=== PATIENT | male | born 1970 | race Two or more races ===

== ENCOUNTER 2018-11-05 19:19 | Emergency (ER) | payer MEDICAID ==
--- NOTE | 2018-11-05 19:46 | ED Physician Chart ---
ED Chief Complaint/HPI - Patient Information Date Seen:: 11/05/18 Time Seen:: 19:41 Chief Complaint:: Headache History of Present Illness:: 48 yo male had sudden onset of headache yesterday evening. Pt felt nausea and vomited 4 times last night and 3 times today. The headache is located in parietal and frontal areas with dizziness and stiff neck. Pt denied any recent head trauma but did recall a fall on the posterior head and back 2 years ago. He did not go to ED or see a doctor. Pt had similar headache a year ago. Pt was not on aspirin or other blood thinner. Allergies:: Allergies Allergy/AdvReac Type Severity Reaction Status Date / Time No Known Allergies Allergy Verified 11/05/18 19:32 Vitals:: Vital Signs - 8 hr 11/05/18 19:20 Temp 98.6 F HR 97 RR 18 BP 123/80 O2 Sat % 96 ED Review of Systems - Review of Systems General/Constitutional: No fever, No chills Skin: No rash Head: Headache Eyes: No pain ENT: No earache Neck: Neck pain Cardio Vascular: No chest pain Pulmonary: No SOB GI: Nausea, Vomiting, Diarrhea Musculoskeletal: Other (bilateral knee pain) Psychiatric: No prior psych history Neurological: No focal symptoms, Headache ED Past Medical History - Past Medical History Past Medical History: HTN, DM, Dyslipidemia, Arthritis Social History: Non Smoker, No Alcohol, No Drug Use Surgical History: None Family Medical History - Family Member Mother Hx Family Hypertension: Yes Hx Family Diabetes: Yes ED Physical Exam - Physical Examination General/Constitutional: Awake, Alert Head: Atraumatic Eyes: PERRL, EOMI Skin: No skin lesions ENMT: External ears, nose nl, Nasal exam nl Other Neck comments:: Posterior neck tenderness, mild stiff neck Respiratory: Clear to Auscultation, No Wheeze/Rhonchi/Rales Cardio Vascular: RRR, No murmur, gallop, rubs, NL S1 S2 GI: No tenderness/rebounding/guarding Extremities: normal strength in all extremities Neuro/Psych: No focal deficits ED Labs/Radiology/EKG Results - Lab Results Results: Laboratory Last Values WBC 9.0 Th/cmm (4.8-10.8) 11/05/18 20:00 RBC 5.68 Mil/cmm (4.30-5.70) 11/05/18 20:00 Hgb 17.4 gm/dL (12-16) 11/05/18 20:00 Hct 51.4 % (41.0-60) 11/05/18 20:00 MCV 90.6 fl (80-99) 11/05/18 20:00 MCH 30.6 pg (26.0-30.0) H 11/05/18 20:00 MCHC Differential 33.7 pg (28.0-36.0) 11/05/18 20:00 RDW 12.2 % (11.5-20.0) 11/05/18 20:00 Plt Count 274 Th/cmm (150-400) 11/05/18 20:00 MPV 7.7 fl 11/05/18 20:00 Neutrophils % 70.1 % (40.0-80.0) 11/05/18 20:00 Lymphocytes % 22.1 % (20.0-50.0) 11/05/18 20:00 Monocytes % 5.3 % (2.0-10.0) 11/05/18 20:00 Eosinophils % 2.4 % (0.0-5.0) 11/05/18 20:00 Basophils % 0.1 % (0.0-2.0) 11/05/18 20:00 PT 9.6 SECONDS (9.5-11.5) 11/05/18 20:00 INR 0.92 (0.5-1.4) 11/05/18 20:00 PTT (Actin FS) 26.7 SECONDS (26.0-38.0) 11/05/18 20:00 Sodium 134 mEq/L (136-145) L 11/05/18 20:00 Potassium 3.5 mEq/L (3.5-5.1) 11/05/18 20:00 Chloride 102 mEq/L (98-107) 11/05/18 20:00 Carbon Dioxide 21.5 mEq/L (21.0-31.0) 11/05/18 20:00 Anion Gap 14.0 (7.0-16.0) 11/05/18 20:00 BUN 17 mg/dL (7-25) 11/05/18 20:00 Creatinine 0.8 mg/dL (0.7-1.3) 11/05/18 20:00 Est GFR ( Amer) > 60.0 ml/min (>90) 11/05/18 20:00 Est GFR (Non-Af Amer) > 60.0 ml/min 11/05/18 20:00 BUN/Creatinine Ratio 21.3 11/05/18 20:00 Glucose 296 mg/dL (70-105) H 11/05/18 20:00 Calcium 8.9 mg/dL (8.6-10.3) 11/05/18 20:00 Total Bilirubin 0.8 mg/dL (0.3-1.0) 11/05/18 20:00 AST 10 U/L (13-39) L 11/05/18 20:00 ALT 13 U/L (7-52) 11/05/18 20:00 Alkaline Phosphatase 80 U/L (34-104) 11/05/18 20:00 Total Protein 7.0 gm/dL (6.0-8.3) 11/05/18 20:00 Albumin 4.1 gm/dL (4.2-5.5) L 11/05/18 20:00 Globulin 2.9 gm/dL 11/05/18 20:00 Albumin/Globulin Ratio 1.4 (1.0-1.8) 11/05/18 20:00 Urine Source MIDSTREAM 11/05/18 19:55 Urine Color YELLOW 11/05/18 19:55 Urine Clarity HAZY (CLEAR) 11/05/18 19:55 Urine pH 6.0 (4.6 - 8.0) 11/05/18 19:55 Ur Specific Watkins 1.025 (1.005-1.030) 11/05/18 19:55 Urine Protein 100 mg/dL (NEGATIVE) H 11/05/18 19:55 Urine Glucose (UA) >=1000 mg/dL (NEGATIVE) H 11/05/18 19:55 Urine Ketones NEGATIVE mg/dL (NEGATIVE) 11/05/18 19:55 Urine Blood TRACE (NEGATIVE) 11/05/18 19:55 Urine Nitrate NEGATIVE (NEGATIVE) 11/05/18 19:55 Urine Bilirubin NEGATIVE (NEGATIVE) 11/05/18 19:55 Urine Urobilinogen 0.2 E.U./dL (0.2 - 1.0) 11/05/18 19:55 Ur Leukocyte Esterase NEGATIVE (NEGATIVE) 11/05/18 19:55 Urine RBC 5-10 /hpf (0-5) H 11/05/18 19:55 Urine WBC 2-5 /hpf (0-5) 11/05/18 19:55 Ur Epithelial Cells FEW /lpf (FEW) 11/05/18 19:55 Urine Bacteria 1+ /hpf (NONE SEEN) H 11/05/18 19:55 Urine Mucus FEW /lpf (FEW) 11/05/18 19:55 - Radiology Results Results: Non-contrast CT head: left posterior parietal lobe subarachnoid bleed. No shift. No edema. ED Assessment - Assessment General Assessment: Headache Left parietal lobe SAH Assessment/Comments:: CBC, CMP, PT/PTT, UA CT head wo contrast Tylenol 650 mg PO ED Septic Shock - . Is Septic Shock (SBP<90, OR Lactate>4 mmol\L) present?: No - <6hrs of presentation: Vital Signs: Vital Signs - 8 hr 11/05/18 19:20 Temp 98.6 F HR 97 RR 18 BP 123/80 O2 Sat % 96 ED Reassessment (Disposition) - Reassessment Reassessment Condition:: Unchanged - Patient Disposition Discharge/Transfer:: Acute Care (other hosp) Accepting Physician:: Dr. Velasco at [facility] ED
[2018-11-05 20:07] LABS: % BASOPHILS 0.1 % (0.0-2.0); % EOSINOPHILS 2.4 % (0.0-5.0); % LYMPHOCYTES 22.1 % (20.0-50.0); % MONOCYTES 5.3 % (2.0-10.0); % NEUTROPHILS 70.1 % (40.0-80.0); EOSINOPHILE ABSOLUTE 0.2 Th/cmm (0.1-0.4); HEMATOCRIT 51.4 % (41.0-60); HEMOGLOBIN 17.4 gm/dL (12-16); MEAN CELL VOLUME 90.6 fl (80-99); MEAN CORPUSCULAR HEMOGLOBIN 30.6 pg (26.0-30.0); MEAN CORPUSCULAR HGB CONC 33.7 pg (28.0-36.0); MONOCYTE ABSOLUTE 0.5 Th/cmm (0.3-1.0); NEUTROPHILE ABSOLUTE 6.3 Th/cmm (1.8-8.0); PLATELET COUNT 274 Th/cmm (150-400); RED BLOOD COUNT 5.68 Mil/cmm (4.30-5.70); RED CELL DISTRIBUTION WIDTH 12.2 % (11.5-20.0)
[2018-11-05 20:08] LABS: URINE SOURCE MIDSTREAM
[2018-11-05 20:11] LABS: URINE BILIRUBIN NEGATIVE (NEGATIVE); URINE BLOOD TRACE (NEGATIVE); URINE GLUCOSE (UA) >=1000 mg/dL (NEGATIVE); URINE KETONE NEGATIVE (NEGATIVE); URINE LEUKOCYTE ESTERASE NEGATIVE (NEGATIVE); URINE MICROSCOPIC INDICATED? YES; URINE NITRATE NEGATIVE (NEGATIVE); URINE PROTEIN 100 mg/dL (NEGATIVE); URINE UROBILINOGEN 0.2 E.U./dL (0.2 - 1.0)
[2018-11-05 20:17] LABS: URINE CLARITY HAZY (CLEAR); URINE COLOR YELLOW
[2018-11-05 20:21] LABS: ALB/GLOB RATIO 1.4 (1.0-1.8); ALBUMIN 4.1 gm/dL (4.2-5.5); ALKALINE PHOSPHATASE 80 U/L (34-104); BILIRUBIN,TOTAL 0.8 mg/dL (0.3-1.0); BUN - UREA NITROGEN 17 mg/dL (7-25); CALCIUM SERUM 8.9 mg/dL (8.6-10.3); CARBON DIOXIDE 21.5 mEq/L (21.0-31.0); CHLORIDE 102 mEq/L (98-107); CREATININE - SERUM 0.8 mg/dL (0.7-1.3); GFR AFRICAN-AMERICAN > 60.0 ml/min (>90); GFR NON AFRICAN-AMERICAN > 60.0 ml/min; GLUCOSE 296 mg/dL (70-105); POTASSIUM SERUM 3.5 mEq/L (3.5-5.1); SGOT 10 U/L (13-39); SGPT/ALT 13 U/L (7-52); SODIUM SERUM 134 mEq/L (136-145)
[2018-11-05 20:32] LABS: URINE EPITHELIAL CELLS FEW /lpf (FEW)
[2018-11-05 20:33] LABS: URINE BACTERIA 1+ /hpf (NONE SEEN)
[2018-11-05 21:23] LABS: INR 0.92 (0.5-1.4)
--- NOTE | 2018-11-06 09:36 | Diagnostic Imaging Report ---
Head CT without intravenous contrast Indication: Headache Comparison: None Technique: Axial images were obtained from the vertex to the skull base without IV contrast. Coronal reconstructions were made. Total DLP: [id number], [id number] FINDINGS: Images of the brain obtained without contrast demonstrate area of high density seen along the left parietal occipital subarachnoid region. No mass effect or midline shift. The ventricles and basal cisterns are patent. No evidence of a skull fracture or focal soft tissue swelling. Mild Sinus inflammatory disease is noted with small air-fluid level of the left sphenoid sinus. IMPRESSION: Area of serpiginous areas of increased density seen along the left parietal-occipital regions. This may represent a small amount of subarachnoid hemorrhage. Other less likely causes would include a vascular anomaly. Please correlate patient's clinical history and for possible recent trauma. Short-term repeat CT examination 24 to 48 hours or MRI may be obtained for further assessment. Mild sinus disease with small air-fluid level of the left sphenoid sinus.
== END 2018-11-05 21:40 | disposition short-term general hospital (02) ==
LOC: ER 19:19
DX: I60.8 Other nontraumatic subarachnoid hemorrhage (principal); R51 Headache; I10 Essential (primary) hypertension; E11.9 Type 2 diabetes mellitus without complications; E78.5 Hyperlipidemia, unspecified; M19.90 Unspecified osteoarthritis, unspecified site
CPT/HCPCS: 36415-UA; 70450-TC; 80053-TC; 81001-TC; 83036-90; 84484-TC; 85025-TC; 85610-TC; Z7610